=== PATIENT | female | born 1955 | race Caucasian/White ===

== ENCOUNTER → 2023-07-21 11:09 | Outpatient (CLI) | payer MEDICARE, BC, SELFPAY ==
--- NOTE | 2023-07-21 11:15 | XR_ITS ---
FINAL REPORT CLINICAL HISTORY: asthma exacerbation, LLL pneumonia COMPARISON: None FINDINGS: Two views of the chest were obtained. The heart size and pulmonary vascularity are within normal limits. The mediastinum is normal. No acute pulmonary abnormality is identified. There is no pneumothorax. The bony thorax is intact. IMPRESSION: No active cardiopulmonary disease. Reviewed, Interpreted and Dictated by Ronnie Mullins III, MD Transcribed by Coleen Xiao Authenticated and [facility]
== END ==
PROVIDERS: PCP Family Medicine; Visit Provider Nurse Practitioner
DX: J18.9 Pneumonia, unspecified organism (principal); J45.901 Unspecified asthma with (acute) exacerbation
CPT/HCPCS: 71046

== ENCOUNTER → 2023-08-12 23:31 | Outpatient (CLI) | payer MEDICARE, BC, SELFPAY ==
[2023-08-12 18:06] LABS: Coronavirus 19, PCR Not Detected (NotDetected); Influenza A, PCR Not Detected (NotDetected); Influenza B, PCR Not Detected (NotDetected)
== END ==
LOC: LAB.DROPOF 23:31
PROVIDERS: PCP Family Medicine; Visit Provider Nurse Practitioner
DX: J06.9 Acute upper respiratory infection, unspecified (principal); R06.2 Wheezing
CPT/HCPCS: 87636

== ENCOUNTER 2023-08-30 13:36 | Outpatient (CLI) | payer MEDICARE, BC, SELFPAY ==
--- NOTE | 2023-08-30 13:41 | XR_ITS ---
FINAL REPORT CLINICAL HISTORY: cough, asthma exacerbation COMPARISON: 07/21/2020. FINDINGS: Two views of the chest were obtained. The heart size and pulmonary vascularity are within normal limits. The mediastinum is normal. No acute pulmonary abnormality is identified. There is no pneumothorax. The bony thorax is intact. There are degenerative changes in the thoracic spine. IMPRESSION: No active cardiopulmonary disease. Reviewed, Interpreted and Dictated by Ronnie Mulilns III, MD Transcribed by Charlette Smith Authenticated and [facility]
[2023-08-30 18:24] LABS: Coronavirus 19, PCR Not Detected (NotDetected); Influenza B, PCR Not Detected (NotDetected)
[2023-08-30 20:30] LABS: Influenza A, PCR Detected (NotDetected)
== END 2023-08-30 23:59 ==
LOC: LAB 13:37 → RAD 13:38
PROVIDERS: PCP Family Medicine; Visit Provider Nurse Practitioner
DX: J45.901 Unspecified asthma with (acute) exacerbation (principal); R05.9 Cough, unspecified; J10.1 Influenza due to other identified influenza virus with other respiratory manifestations
CPT/HCPCS: 71046; 87636

== ENCOUNTER 2024-11-07 12:00 | Outpatient (CLI) | payer MEDICARE, BC, SELFPAY ==
[2024-11-07 19:02] LABS: Basophils % 0.3 % (0.1-2.0); Eosinophils # 0.2 K/mm3 (0.0-0.4); Eosinophils % 3.4 % (0.1-12.0); Hematocrit 41.5 % (37.0-47.0); Hemoglobin 13.4 g/dL (12.2-16.2); Lymphocytes # 1.6 K/mm3 (0.7-4.5); Lymphocytes % 23.6 % (10-50); Mean Corpuscular HGB Conc 32.3 g/dL (31.8-35.4); Mean Corpuscular Hemoglobin 30.7 pg (27.0-31.2); Mean Platelet Volume 11.4 fl (7.4-10.4); Monocytes # 0.4 K/mm3 (0.1-1.0); Monocytes % 6.3 % (1.7-9.3); Neutrophils # 4.5 K/mm3 (1.8-7.8); Neutrophils % 66.3 % (37.0-80.0); Platelet Count 242 K/mm3 (142-424); Red Blood Count 4.37 M/mm3 (4.20-5.40); Red Cell Distribution Width 13.8 % (11.5-17.5); White Blood Count 6.8 K/mm3 (4.8-10.8)
[2024-11-07 19:38] LABS: Hemoglobin A1C 5.7 % (4.0-6.0)
[2024-11-07 19:48] LABS: Alanine Aminotransferase 18 U/L (12-78); Albumin Level 4.2 g/dl (3.5-5.0); Alkaline Phosphatase 53 U/L (38-126); Anion Gap 12.4 mEq/L (5-15); Aspartate Amino Transferase 24 U/L (14-36); Bilirubin,Total 0.4 mg/dl (0.2-1.3); Blood Urea Nitrogen 23 mg/dl (7-17); Calcium 9.9 mg/dl (8.4-10.2); Carbon Dioxide 23 mmol/L (22.0-30.0); Chloride 108 mmol/L (98-107); Chol/HDL Ratio 3.4 (1-3.5); Cholesterol 170 mg/dl (140-200); Estimated Glomerular Filt Rate 83 ml/min (>60); GFR (African American) 101 ML/MIN (>60); Globulin 2.1 g/dL (1.3-3.2); Glucose 79 mg/dl (74-100); HDL Cholesterol 50 mg/dl (40-60); Potassium 4.4 mmoL/L (3.5-5.1); Sodium 139 mmol/L (136-145); Total Protein,Serum 6.3 g/dl (6.3-8.2); Triglycerides 73 mg/dl (30-150); VLDL Cholesterol 15 mg/dL (0-40)
[2024-11-07 19:59] LABS: Direct LDL Cholesterol 88.49 mg/dL (100-129)
[2024-11-07 20:51] LABS: Vitamin B12 > 1000 pg/mL (239-931)
== END 2024-11-07 23:59 | disposition home or self-care (01) ==
LOC: LAB.DROPOF 11-08 12:33
PROVIDERS: PCP Nurse Practitioner; Visit Provider Nurse Practitioner
DX: R53.83 Other fatigue (principal); Z13.1 Encounter for screening for diabetes mellitus; Z13.220 Encounter for screening for lipoid disorders
CPT/HCPCS: 80053; 80061; 82607; 83036; 84443; 85025

== ENCOUNTER 2025-08-15 08:14 | Outpatient (CLI) | payer MEDICARE, BC, SELFPAY ==
--- OUTSIDE RECORDS SUMMARY | 2024-06-12 08:25 | XMS_ITS | Continuity of Care Document ---
Author Organization [facility] Address [address] [place] [address] Phone Care Team Providers Care Ground Support Equipment Fitter Name Role Phone Guy Estrada MD Unavailable Unavailable Allergies, Adverse Reactions, Alerts Substance Reaction Status Criticality tetracycline Rash, Swelling Active No Informatio n tetracycline Unknown Active No Information ibuprofen Rash, Swelling Active No Informatio n gabapentin ItchingItching Active No Informatio n Medications Medication Instructions Dosage Effective Dates (start - stop) Status Comments Vitamin D3 50 mcg (2,000 unit) tablet take 1 capsule by oral route every day 1 capsule - Active Vitamin B-12 1,000 mcg tablet take 1 capsule by oral route every day 1 capsule - Active PreserVision AREDS-2 250 mg-90 mg-40 mg-1 mg capsule take 1 capsule by oral route every day 1 capsule - Active albuterol sulfate HFA 90 mcg/actuation aerosol inhaler inhale 2 puff by inhalation route every 4 - 6 hours as needed 180 MCG - Active Procedures Procedure Date Post Op Follow Up Visit Discission Of Secondary Membranous Catar act Yag 1 Or More Stages Discission Of Secondary Membranous Catar act Yag 1 Or More Stages OFFICE/OUTPATIENT VISIT, Frantz SAWYER - Post Op Follow Up Visit Discission Of Secondary Membranous Catar act Yag 1 Or More Stages Discission Of Secondary Membranous Catar act Yag 1 Or More Stages OFFICE/OUTPATIENT VISIT, Frantz SAWYER - Post Op Follow Up Visit Post Op Follow Up Visit Post Op Follow Up Visit Extracapsular Cataract Removal With IOl Manual Or Enterprise Software Developer Extracapsular Cataract Removal With IOl Manual Or Enterprise Software Developer Surgeon CATARACT SURG W/IOL, 1 STAGE Post Op Car e Ophthalmic Biometry W Iol Calculation Un ilateral OFFICE/OUTPATIENT VISIT, EST, Moderate A Post Op Visit Cataract Post Op Visit Cataract Extracapsular Cataract Removal With IOl Manual Or Enterprise Software Developer Surgeon Extracapsular Cataract Removal With IOl Manual Or Enterprise Software Developer CATARACT SURG W/IOL, 1 STAGE Post Op Car e Eye Exam New Patient Comprehensive 1 Or More Visits Ophthalmic Biometry W Iol Calculation Un ilateral Advance Directives Directive Yes / No Effective Date File Name No Information Encounters Encounter Description Practice Location Reason(s) For Visit Diagnoses Date Provider Providers Copied on Encounter [facility] , [address] [place], [place], [facility], tel:[phone] [facility] 4 week va/IOP f/u (chief complaint) Presence of intraocular lens Oct-2 4 Natalie Tovar. [address] [place] [address], [id number] , . [phone] Referring Provider: Guy Koenig, [facility] [place], [address] . tel:[phone] [facility] , [facility] [place] [place], [facility], tel:[phone] [facility] Other secondary cataract, left eye Sep-2 4 Natalie Tovar. [facility] [place], [place], [id number] , . tel:[phone] Referring Provider: Guy Koenig, [address] [place] [address], [address] . tel:[phone] [facility], [facility] [place], [facility], [place] tel:[phone] [facility] Other secondary cataract, left eye Sep-2 4 [facility] [place]. [address] [place], [place], [id number] , [place]. tel:[phone] Referring Provider: Guy Koenig, [address] [place], [address] . tel:[phone] OFFICE/OUTPAT IENT VISIT, EST, Moderate [facility] , [address] [place], [address], [place] tel:[phone] [facility] Evaluation for secondary cataracts because (chief complaint) PCO left eyeVitreous opacities of both eyesDry eye syndrome of bilateral lacrimal glandsPtosis of both eyelids Sep-1 4 Natalie Tovar. [address] [place], [place], [id number] , [place]. [phone] Referring Provider: Guy Koenig, [address] [place], [address] . tel:[phone] [facility] , [address] [place] [place], tel:[phone] [facility] 4 WK PO (chief complaint) Presence of intraocular lens May-0 3 Natalie Tovar. [address] [place], [place], [id number] , [place]. [phone] Referring Provider: Guy Koenig, [address] [place], [address] . tel:[phone] [facility], [address] [place], [address], [place] tel:[phone] [facility] Other secondary cataract, right eye Apr-0 3 [facility] [place] [facility] [place]. [address] [place], [place], [id number] , [place]. tel:[phone] Referring Provider: Guy Koenig, [address] [place], [address] . tel:[phone] [facility] , [address] [place], [address], [place] tel:[phone] [facility] Other secondary cataract, right eye 3 Kode Guy. [address] [place], [place], [id number] , [place]. [phone] Referring Provider: No Ref Doc No Referring Doc. OFFICE/OUTPAT IENT VISIT, EST, Moderate [facility] , [address] [place], [address], [place] tel:[phone] [facility] [place] Yag laser evaluation (chief complaint) PCO- BilateralVitreous opacities of both eyesDry eye syndrome of bilateral lacrimal glandsPtosis of both eyelids 3 Kode Guy. [address] [place], [place], [id number] , [place]. [phone] Referring Provider: Stas Sarah, [place], [address] . tel:[phone] [facility] , [address] [place], [address], [place] tel:[phone] [facility] Emeka Watson decreased vision (chief complaint) PCO- BilateralVitreous opacities of both eyesDry eye syndrome of bilateral lacrimal glandsPtosis of both eyelids 2 Kode Guy. [address] [place], [place], [id number] , [place]. [phone] Referring Provider: Henry Zapata [address], [place], [address] . tel:[phone] [facility] , [address] [place], [address], [place] tel:[phone] [facility] Emeka Watson 2 wk PO OD (chief complaint) Presence of intraocular lens 2 Kode Guy. [address] [place], [place], [id number] , [place]. tel:[phone] Referring Provider: Henry Zapata, [address], [place], [address] . tel:[phone] [facility] , [address] [place], [address], [place] tel:[phone] [facility] same day s/p phaco (chief complaint) Presence of intraocular lens 2 Natalie Tovar. [address] [place], [place], [id number] , [place]. tel:[phone] Referring Provider: Henry Zapata, [address], [place], [address] . tel:[phone] [facility], [address] [place], [address], [place] tel:[phone] [facility] NS Cat RIGHT eye 2 [facility]. [address] [place], [place], [id number] , [place]. tel:[phone] Referring Provider: Guy Koenig, [address] [place], [address] . tel:[phone] [facility] , [address] [place], [address], [place] tel:[phone] [facility] NS Cat RIGHT eye 2 Natalie Tovar. [address] [place], [place], [id number] , [place]. tel:[phone] Referring Provider: Henry Zapata, [address], [place], [address] . tel:[phone] [facility] , [address] [place], [address], [place] tel:[phone] [facility] No Information 2 Natalie Tovar. [address] [place], [place], [id number] , [place]. tel:[phone] Referring Provider: Henry Zapata, [address], [place], [address] . tel:[phone] OFFICE/OUTPAT IENT VISIT, EST, Moderate [facility] , [address] [place], [address], [place] tel:[phone] [facility] [place] cataract OD (chief complaint) NS Cat RIGHT eyePCO left eyeVitreous opacities of both eyesPtosis of both eyelids Apr-1 8202 2 Kode Guy. [address] [place], [place], [id number] , [place]. [phone] Referring Provider: Henry Zapata, [address], [place], [address] . tel:[phone] [facility] , [address] [place], [address], [place] tel:[phone] [facility] (chief complaint) Presence of intraocular lens Apr-1 202 0 Kode Guy. [address] [place], [place], [id number] , [place]. tel:[phone] Referring Provider: Guy Koenig, [address] [place], [address] . tel:[phone] [facility] , [address] [place], [address], [place] tel:[phone] [facility] Emeka Watson same day PCIOL PO OS (chief complaint) Presence of intraocular lens Mar-0 9-202 0 Kode Guy. [address] [place], [place], [id number] , [place]. tel:[phone] Referring Provider: Guy Koenig, [address] [place], [address] . tel:[phone] [facility] , [address] [place], [address], [place] tel:[phone] [facility] Age-related nuclear cataract, left eye Mar-0 9-202 0 Kode Guy. [address] [place], [place], [id number] , [place]. tel:[phone] Referring Provider: Guy Koenig, [address] [place], [address] . tel:[phone] [facility], [address] [place], [address], [place] tel:[phone] [facility] Age-related nuclear cataract, left eye Mar-0 0 [facility] [place]. [address] [place], [place], [id number] , [place]. tel:[phone] Referring Provider: Guy Koenig, [address] [place], [address] . tel:[phone] [facility] , [address] [place], [address], [place] tel:[phone] [facility] Surgery [facility] No Information Mar-0 0 Natalie Guy. [address] [place], [place], [id number] , [place]. tel:[phone] Referring Provider: Stas Sarah, [place], [address] . tel:[phone] [facility] , [address] [place], [address], [place] tel:[phone] [facility] cat consult (chief complaint) NS Cat BilateralVitreous opacities of both eyesDry eye syndrome of bilateral lacrimal glands 0 Natalie Tovar. [address] [place], [place], [id number] , [place]. tel:[phone] Referring Provider: Stas Sarah, [place], [address] . tel:[phone] Family History Family Member Type Diagnosis Age At Onset Problem (finding) No family history of Di abetes mellitus Problem No family histor y of Macular degeneration Problem (finding) No family history of Gl aucoma Problem (finding) No family history of Re tinal disease Father Problem (finding) cataract Problem (finding) No family history of Ca ncer, unknown Problem (finding) No family history of Hy pertension Payers Payer name Insurance type Covered republican ID Preethi taylor(s) Medicare [place] [id number] Stan Odom Bs [facility] [place] [id number] Social History Type Description Quantity Date Captured Comments Alcohol Use Details Unknown Caffeine Use Details Unknown Tobacco Use Status No Information Smoking Status No Information Sex Female Chief Complaint And Reason For Visit From encounter dated '06/12/2024 13:25'. 4 week va/IOP f/u (chief complaint). Description: The 68 year old patient presents for evaluation of 4 week va/IOP f/u in the right and left eyes. PT says she saw black [place] regis floaters for a week mike half after YAG procedure, none now. PT denies pain or flashes. PT says vision has improved tremendously. Reason For Referral Reason For Referral No Information Plan Of Treatment Date Type Action Status Goal Tobacco cessation counseling completed Referral Ordered: LINDEN JORDAN -[facility] Family Medicine (related to NS Cat Bilateral) ordered Referral Referred To: LINDEN JORDAN [address] [place], [address] [phone] Ordered: Referrals: [facility] : Family Medicine. LINDEN JORDAN. Assume care ordered History Of Present Illness Encounter Date Complaint History Of Prese nt Illness 4 week va/IOP f/u The 68 year ol d patient presents for evaluation of 4 week va/IOP f/u in the right and left eyes. PT says she saw black [place] floaters for a week and a half after YAG procedure, none now. PT denies pain or flashes. PT says vision has improved tremendously. Evaluation for secon ravin cataracts because The 68 year old patient presents for an evaluation for secondary cataracts because of decreased VA OS. Pt describes her OS VA as foggy and has difficulty with DVA & NVA the TV is blurry, I have difficulty reading fine print, I require more light, I have difficulty reading things on my phone, I have to get closer to signs before I can read them The VA has been gradually worsening over the past 6 months. Pt does not wear Rx specs. Pt had cataract surgery OS=10/23/19 OD=02/09/22 and YAG cap OD=11/26/22Meds: No gtts OU 4 WK PO The 67 year old female presents for evaluation of 4 WK PO in the right eye. Pt states va has improved. Yag laser evaluation The 66 year old female presents for evaluation of Yag laser evaluation. Pt reports that VA in the OD has been stable since last OV. She describes the VA to be foggy and sometimes blurry. She experiences a mild glare when sitting in her recliner and she is leaning back towards her light. Pt has no complaints on NVA. No complaints on the OS. She is experiencing a white discharge in the corner of her eye. She says she pulls it out at least 1 to 3 times a day, she noticed it a few years before sx but it bothers her.Pt is not currently taking any gtts decreased vision The 66 year old female presents for evaluation of decreased vision in the right eye. Pt VA hazy foggy it feels different on my face. Pt denies any pain, discomfort, double vision, flashes of light, or floaters OU,Meds: Pt not on drops 2 wk PO OD The 66 year old female presents for evaluation of 2 wk PO OD. Pt Va has improved. Pt describes vision fairly clear. Pt has c/o. Pt denies eye pain, flashes of light and floaters. Meds: Lote 2/0, Brom 2/0 same day s/p phaco The 66 year o ld female presents for evaluation of same day s/p phaco in the right eye. P states that her vision is improving. cataract OD The 65 year old female presents for evaluation of cataract OD. Patient presents with poor vision in OD. The vision has been poor for the past 3 months. Vision is gradually worsening. Patient is not having difficulty with glare driving at night. No improvement with glasses. Referred by Dr. Zapata -see [id number]/Retina/Macula Degen FHx:Meds:(-) History of crossed or lazy eye (-) Flomax (tamsulosin) use(-) Eye trauma(-) Diabetes(-) Blood thinners(-) Prior LASIK/PRK (-) History of eye surgery(-) Prior CTL wear 1m VTR The 63 year old female presents for evaluation of 1m VTR in the left eye. PT states her va is stable with no major changes. PT states she was compliant with all drops. PT denies pain,double va, flashes, and floaters. same day PCIOL PO OS The 63 year old female presents for evaluation of same day PCIOL PO OS. Pt states her vision is fine. PT mentions FBS. PT denies other issues. cat consult The 63 year old female presents for evaluation of cat consult in the right and left eyes. It started about 2 month(s) ago. PT states she has hazy blurry vision. PT states she is having issues driving at night, reading traffic signs, writing checks, cooking and with hobbies, and issues with glare. Pt is unhappy with her vision. Functional Status Date Functional Assessmen t No Information Instructions Date Instruction Additional Infor celia Impression/Plan Related to Prese nce of intraocular lens Impression/Plan Impression/Plan Related to Prese nce of intraocular lens Impression/Plan Impression/Plan Impression/Plan Related to Prese nce of intraocular lens Impression/Plan Related to Prese nce of intraocular lens Impression/Plan Impression/Plan Related to Prese nce of intraocular lens Impression/Plan Related to Prese nce of intraocular lens Impression/Plan Assessments Type Assessment Date assessment Presence of intraocular lens May Patient Care Teams Name Effective Dates (start - stop) Status Members No Information
[2025-08-15 15:08] LABS: Hematocrit 41.3 % (37.0-47.0); Hemoglobin 13.4 g/dL (12.2-16.2); Immature Granulocytes % 0.2 %; Mean Corpuscular HGB Conc 32.4 g/dL (31.8-35.4); Mean Corpuscular Hemoglobin 30.7 pg (27.0-31.2); Mean Corpuscular Volume 94.5 fl (81-99); Nucleated Red Blood Cells % 0 %; Platelet Count 224 K/mm3 (142-424); Red Blood Count 4.37 M/mm3 (4.20-5.40); Red Cell Distribution Width-SD 47.7 fL; White Blood Count 4.6 K/mm3 (4.8-10.8)
[2025-08-15 15:30] LABS: Alanine Aminotransferase 16 U/L (12-78); Albumin Level 4.1 g/dl (3.5-5.0); Albumin/Globulin Ratio 1.5 (1.1-1.8); Alkaline Phosphatase 73 U/L (38-126); Anion Gap 10.3 mEq/L (5-15); Aspartate Amino Transferase 28 U/L (14-36); Bilirubin,Total 0.6 mg/dl (0.2-1.3); Blood Urea Nitrogen 12 mg/dl (7-17); Calcium 9.1 mg/dl (8.4-10.2); Carbon Dioxide 28 mmol/L (22.0-30.0); Chloride 105 mmol/L (98-107); Creatinine,Serum 0.80 mg/dl (0.52-1.04); Estimated Glomerular Filt Rate 71 ml/min (>60); GFR (African American) 86 ML/MIN (>60); Globulin 2.8 g/dL (1.3-3.2); Glucose 79 mg/dl (74-100); Potassium 4.3 mmoL/L (3.5-5.1); Sodium 139 mmol/L (136-145); Total Protein,Serum 6.9 g/dl (6.3-8.2)
--- OUTSIDE RECORDS SUMMARY | 2025-08-16 08:16 | XMS_ITS | Clinical Summary ---
Author Organization [facility] Address [address] [place] [address] Care Team Providers Care Production Operations Manager Name Role Phone Linden Wall MD Primary Care Provider [phone] Damian Young MD Unavailable [phone] Allergies Active Allergy Reactions Criticality Noted Date Comments Gabapentin Itching,Swelling,Rash High 09/11/2016 Hands wrists and neck Other 06/25/2016 Seasonal/enviromental allergies Tetracycline Itching,Rash 06/25/2016 All cyclines Unsure of reaction Medications MULTIVIT-MINERALS /FOLIC ACID (WOMEN'S MULTIVITAMIN GUMMIES PO) Take 2 Tabs by mouth daily. Active Diphenhydramine-A cetaminophen (TYLENOL PM EXTRA STRENGTH) 25-500 mg Tablet Take 2 Tabs by mouth nightly at bedtime. Active homeopathic drugs (SAMBUCUS PO) Take by mouth daily. Active Chlorpheniramine- Acetaminophen (CORICIDIN HBP COLD AND FLU) 2-325 mg Tablet Take by mouth as needed for Other (enter comment) (congestion). Active estradiol (ESTRACE) 1 mg tabletIndications :Failure of total knee replacement, initial encounter,Status post revision of total replacement of right knee May resume 6 weeks post op per Dr Young protocol. 8 Active predniSONE (DELTASONE) 10 mg tablet Take this medication for 10 days. Take 5 tablets daily for 2 days Take 4 tablets daily for 2 days Take 3 tablets daily for 2 days Take 2 tablets daily for 2 days Take 1 tablets daily for 2 days Then stop. 30 Tab 8 Active hydrOXYzine (ATARAX) 25 mg tablet Take 1 Tab by mouth every 6 hours as needed for Itching. 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, subsequent encounter 12/04/2016 Arthrofibrosis of total knee arthroplasty, initial encounter 09/09/2016 Allergic reaction, initial encounter 07/30/2016 Primary osteoarthritis involving multiple joints 07/13/2016 Somnolence 07/13/2016 Primary osteoarthritis of right knee 07/09/2016 Asthma Overview (07/13/2016): exercise induced Family History Medical History Relation Name Comments Anesthesia Complications Neg Hx Heart Problems Neg Hx Social History Tobacco Use Types Packs/Day Years Used Date Smoking Tobacco: Never Smokeless Tobacco: Never Alcohol Use Standard Drinks/Week Comments Yes 0 (1 standard drink = 0.6 oz pur e alcohol) rare Comments No Sex and Gender Information Value Date Recorded Sex Assigned at Not on file Legal Sex Female 11:03 AM EDT Gender Identity Not on file Sexual Orientation Not on file Last Filed Vital Signs Vital Sign Reading Time Taken Comments Blood Pressure 123/54 02/16/2018 11:00 AM EDT Pulse 64 02/16/2018 11:00 AM EDT Temperature 36.9 C (98.4 F) 03/04/2020 8:55 AM EDT Respiratory Rate 16 02/16/2018 11:00 AM EDT Oxygen Saturation 95% 02/16/2018 11:00 AM EDT Inhaled Oxygen Concentration - - Weight 81.2 kg (179 lb) 04/25/2024 9:52 AM EDT Height 165.1 cm (5' 5 ) 04/25/2024 9:52 AM EDT Body Mass Index 29.79 04/25/2024 9:52 AM EDT Plan of Treatment Health Maintenance Due Date Last Done Comments Dhara 1956 Colonoscopy 1956 Colorectal Cancer Screening 1956 FIT 1956 Lipid Screening 1974 Pneumococcal Vaccine: 50+ Years (1 of 2 - PCV) 976 Hepatitis C Virus (HCV) Screening 1977 Breast Cancer Screening 2006 Zoster-RZV(Shingrix) (1 of 2) 2006 Fall Risk Assessment 2021 Osteoporosis Screening 2021 Advance Care Planning 08/16/2024 Depression Screening 08/16/2024 COVID-19 Vaccine ( - season) 2025 Influenza Vaccination (#1) 2025 Tetanus Vaccination (Every 10 Years) 06/10/202705/17 RSV Vaccines (1 - 1-dose 75+ series) 12/09/2031 Medical Devices Implanted Type Area Medical Coding Instructor Device Identifier Shelf Expiration Date Model / Serial / Lot Cement Bone Simplex Tobramycin Implanted:Qty: 2 on 07/13/2016 by Modesto Chandler MD at [facility] Right: Knee * REBEL 01/13/2018 [id number] / / [id number] Articular Insert Journey Ii Right 3-4 9mm Cr Xlpe A/P 48mm,M/L 68mm Implanted:Qty: 1 on 07/13/2016 by Modesto Chandler MD at [facility] Right: Knee * LARSEN \T\ NEPHEW 04/04/2026 [id number] / / [id number] Journey [employer] Sz 3 Implanted:Qty: 1 on 07/13/2016 by Modesto Chandler MD at [facility] Right: Knee * LARSEN \T\ NEPHEW 06/01/2026 [id number] / / [id number] Round Patellar Component 32mm Implanted:Qty: 1 on 07/13/2016 by Modesto Chandler MD at [facility] Right: Knee * LARSEN \T\ NEPHEW 04/29/2026 [id number] / / [id number] Journey Ii Cr Right Size 5 Femoral Component Implanted:Qty: 1 on 07/13/2016 by Modesto Chandler MD at [facility] Right: Knee * LARSEN \T\ NEPHEW 01/13/2026 [id number] / / [id number] Knee Total Con Tier 3 S-N Implanted:Qty: 1 on 07/13/2016 by Modesto Chandler MD at [facility] Right: Knee * LARSEN \T\ NEPHEW [id number] / / Journey Ii Xlpe A/P 48mm,M/L 68mm Deep [facility] Articular Insert 9mm Size 3-4,Right Implanted:Qty: 1 on 02/01/2018 by Damian Young MD at [facility] Right: Knee * LARSEN \T\ NEPHEW 06/16/2025 [id number] / / [id number] Insurance MEDICARE Member Subscriber Plan / Payer ( fective 2018-Present) Name:Alba Mcfarlane Member ID:[id number] Relation to Subscriber:Self Name:Alba Mcfarlane Subscriber ID:[id number] Payer ID:[id number] Group ID:Not on file Type:Medicare Address: [facility] [address] [place] [address] [address] [facility] [place] [address] [facility] MEDIC[facility] PART A [facility] [address] [place] [id number] [facility] MEDICARE MEDICARE PART A [facility] [address] [place] [id number] Advance Directives For more information, please contact: [phone] * Full Code (Latest Code Status on File) Date Activated Date Inactivated Comments 02/01/2018 1:46 PM 02/16/2018 8:20 AM * Full Code Date Activated Date Inactivated Comments 07/13/2016 2:39 PM 07/14/2016 5:10 PM Care Teams Production Operations Manager Relationship Specialty Start Date End Date Linden Wall MD PCP - General Family Medicine 06/20/18 Damian Young MD [address] [place] [address] Orthopedic Surgery 06/16/22
--- OUTSIDE RECORDS SUMMARY | 2025-08-16 08:16 | XMS_ITS | Encounter Summary ---
Author Organization [facility] Address [address] [place] [address] Care Team Providers Care Drill Bit Sharpener Name Role Phone Everton Montenegro MD Primary Care Provider + Linden Wall MD Primary Care Provider [phone] Damian Young MD Unavailable [phone] Reason for Visit * Reason Comments Medications Refill Encounter Details Date Type Department Care Team (Late st Contact Info) Description 01/21/2017 Refill [facility] Physicians - Spine Surgery, [place] [address] [place] [address] Jackson Germain PA-C [address] [facility] [address] [place], [place] [id number] Medications Refill Social History Tobacco Use Types Packs/Day Years Used Date Smoking Tobacco: Never Smokeless Tobacco: Never Alcohol Use Standard Drinks/Week Comments Yes 0 (1 standard drink = 0.6 oz pur e alcohol) rare Comments No Sex and Gender Information Value Date Recorded Sex Assigned at Not on file Legal Sex Female 11:03 AM EDT Gender Identity Not on file Sexual Orientation Not on file documented as of this encounter Plan of Treatment Not on file documented as of this encounter Visit Diagnoses Not on filedocumented in this encounter Care Teams Drill Bit Sharpener Relationship Specialty Start Date End Date Everton Montenegro MD [address] [place] [id number] PCP - General Family Medicine 07/08/16 06/19/18 Linden Wall MD [address] [place] [phone] PCP - General Family Medicine 06/20/18 Damian Young MD [address] [place], [place] [address] Orthopedic Surgery 06/16/22 documented as of this encounter
--- OUTSIDE RECORDS SUMMARY | 2025-08-16 08:16 | XMS_ITS | Encounter Summary ---
Author Organization [facility] Address [address] [place] [address] Care Team Providers Care It Recruiter Name Role Phone Everton Montenegro MD Primary Care Provider + Linden Wall MD Primary Care Provider [phone] Damian Young MD Unavailable [phone] Reason for Visit * Reason Comments Medications Refill Encounter Details Date Type Department Care Team (Late st Contact Info) Description 05/04/2017 Refill [facility] Physicians - Spine Surgery, [place] [address] [place] [place] [address] Jackson Germain PA-C [address] [facility] [address] [place], [place] [address] Medications Refill Social History Tobacco Use Types [...] on filedocumented in this encounter Care Teams It Recruiter Relationship Specialty Start Date End Date Everton Montenegro MD [address] [place] [id number] PCP - General Family Medicine 07/08/16 06/19/18 Linden Wall MD [address] [place] [phone] PCP - General Family Medicine 06/20/18 Damian Young MD [address] [place], [place] [address] Orthopedic Surgery 06/16/22 documented as of this encounter
--- OUTSIDE RECORDS SUMMARY | 2025-08-16 08:16 | XMS_ITS | Clinical Summary ---
Author Organization [facility] Address [facility] [address] [place] [employer] [address] Care Team Providers Care Potato Chip Maker Name Role Phone Unavailable Primary Care Provider Unavailabl e Social History Tobacco Use Types Packs/Day Years Used Date Smoking Tobacco: Never Assessed Comments Unknown Sex and Gender Information Value Date Recorded Sex Assigned at Not on file Legal Sex Female 9:57 PM EDT Gender Identity Not on file Sexual Orientation Not on file Plan of Treatment Health Maintenance Due Date Last Done Comments Hepatitis C Screening 1956 Mammogram Screening 1996 Colonoscopy 2001 Pneumococcal 50+ (1 of 1 - PCV) 2006 Shingrix (#1) 2006 DEXA Scan 2021 Influenza Vaccine (#1) 2025 DTap,Tdap,and Td (2 - Td or Tdap) 06/10/2027 017 RSV Vaccine (60+ or ) (1 - 1-dose 75+ series) 12/09/2031 HPV Aged Out No longer eligi ble based on patient's age to complete this topic Meningococcal conjugate kina nt 4 (MCV4) Aged Out No longer eligible b ased on patient's age to complete this topic RSV Immunization (<20 months) Aged Out No longer eligible based on patient's age to complete this topic
--- OUTSIDE RECORDS SUMMARY | 2025-08-16 08:16 | XMS_ITS | Clinical Summary ---
Author Organization [facility] [place] Address [address] [facility] [address] [place] [address] Phone Care Team Providers Care Wireless Sales Representative Name Role Phone Linden Wall MD Primary Care Provider [phone] Allergies Active Allergy Reactions Criticality Noted Date Comments Cyclizine 04/30/2015 Hives and itching Gabapentin Itching,Rash,Swelling High 09/11/2016 Hands wrists and neck Medications estradiol (ESTRACE) 1 mg Oral Tablet TAKE ONE TABLET BY MOUTH DAILY 30 Tab 10 05/05/2016 Active Active Problems Problem Noted Date Diagnosed Date H/O total hysterectomy with removal of both tubes and ovaries 12/28/2013 Menopausal symptoms 12/28/2013 Immunizations Immunization Administration Dates Next Due Tdap 06/10/2017 Surgical History Surgery Date Site/Laterality Comments HYSTERECTOMY 2003 SHOULDER SURGERY Right 2009 TOE SURGERY 1975 Medical History Medical History Date Comments Arthritis knees Family History Relation Name Status Comments Father Mother Social History Tobacco Use Types Packs/Day Years Used Date Smoking Tobacco: Never Smokeless Tobacco: Never Tobacco Cessation:Counseling Given: No Alcohol Use Standard Drinks/Week Comments No 0 (1 standard drink = 0.6 oz pur e alcohol) Sexually Active Control Partners Comments Yes Surgical Male HYST Comments No Sex and Gender Information Value Date Recorded Sex Assigned at Not on file Legal Sex Female 4:42 AM EDT Gender Identity Not on file Sexual Orientation Not on file Obstetrics History Para Term AB IAB SAB Ectopic Multiple Livin g Live Births 2 2 Date Outcome GA Total Labor Labor/2nd/3rd Weight Sex Type Anes PTL Elsie A1 A5 Name Clin 982 Vag-Sp ont 983 Vag-Sp ont Last Filed Vital Signs Vital Sign Reading Time Taken Comments Blood Pressure 124/78 04/30/2015 3:36 PM EDT Pulse 61 12/25/2020 7:42 AM EDT Temperature 36.4 C (97.5 F) 01/02/2025 1:28 PM EDT Respiratory Rate - - Oxygen Saturation 98% 12/25/2020 7:42 AM EDT Inhaled Oxygen Concentration - - Weight 86.5 kg (190 lb 9.6 oz) 01/02/2025 1:28 P M EDT Height 165.1 cm (5' 5 ) 01/02/2025 1:28 PM EDT Body Mass Index 31.72 01/02/2025 1:28 PM EDT Plan of Treatment Upcoming Encounters Date Type Department Care Team (Late st Contact Info) Description 08/27/2025 10:15 AM EST Office Visit [facility] [address] [facility] [address] [place] [id number] Jackson Wall DPM [address] [place] [address] Health Maintenance Due Date Last Done Comments Wellness Exam Medicare 12/09/1958 Hepatitis C Screening 1974 Breast Cancer Screening 1996 Cologuard 2001 FIT 2001 Sigmoidoscopy 2001 Virtual Colonography 2001 Zoster (2 of 3) 08/27/2019 07/02/2019, 03/15/2019 Colon Cancer Screening 10/29/2019 Colonoscopy 10/29/2019 10/28/2009 Bone Density Screening 2021 COVID-19 Vaccine ( season) 2025 04/20/2024, 05/13/2023, 06/18/2021 Influenza Vaccine (#1) 2025 , 05/13/2023, 06/12/2022, Additional history exists DTaP/TDaP/Td (3 - Td or Tdap) 07/14/2031 07/14/2021, 06/10/2017 Pneumococcal Vaccine 50+ Completed 07/27/2023 Hepatitis B Vaccine Aged Out No longe r eligible based on patient's age to complete this topic Meningococcal B Vaccine Aged Out No l onger eligible based on patient's age to complete this topic Insurance PPO PPO MEDICARE [place] PART A AND B Member Subscriber Plan / Payer ( fective 2018-Present) Name:Lucila Mcfarlane Member ID:[id number] Relation to Subscriber:Self Name:Lucila Mcfarlane Subscriber ID:[id number] Payer ID:Not on file Group ID:Not on file Type:Not on file Address: [address] [id number] * Guarantor: Lucila Mcfarlane Account Type Relation to Patient Date of Phone Billing Address [place] Personal Family Self Care Teams Wireless Sales Representative Relationship Specialty Start Date End Date Linden Wall MD PCP - General 06/20/09
== END 2025-08-15 23:59 | disposition home or self-care (01) ==
LOC: LAB.DROPOF 08-16 08:14
PROVIDERS: PCP Nurse Practitioner; Visit Provider Nurse Practitioner
DX: J45.909 Unspecified asthma, uncomplicated (principal); E66.9 Obesity, unspecified
CPT/HCPCS: 80053; 85025